=== PATIENT | female | born 1940 | race Caucasian/White ===

== ENCOUNTER 2021-11-26 11:50 | Outpatient (REF) | payer MEDICARE, BC, SELFPAY ==
[2021-11-26 14:09] LABS: Chloride* 102 mmol/L (96-114); Potassium* 4.5 mmol/L (3.6-5.1); Sodium* 132 mmol/L (135-149)
[2021-11-26 14:12] LABS: Blood Urea Nitrogen* 21 mg/dL (7-30); Calcium* 9.3 mg/dL (8.4-10.6); Creatinine* 0.6 mg/dL (0.5-1.5); Estimated Glomerular Filt Rate 89.56; Glucose* 255 mg/dL (60-115)
[2021-11-26 15:07] LABS: Hemoglobin A1C* 8.72 % (0-5.6)
[2021-11-26 15:30] LABS: Carbon Dioxide* 10 mmol/L (20-32)
== END 2021-11-26 11:51 | disposition home or self-care (01) ==
LOC: NPINS 11:50
PROVIDERS: PCP Family Medicine; Visit Provider Family Medicine
DX: E11.9 Type 2 diabetes mellitus without complications (principal); I10 Essential (primary) hypertension
CPT/HCPCS: 80048; 83036

== ENCOUNTER 2022-05-08 15:42 | Outpatient (REF) | payer MEDICARE, BC, SELFPAY ==
[2022-05-08 16:54] LABS: PCR FLU A Negative PCR FLU A (Negative); PCR FLU B Negative PCR FLU B (Negative)
[2022-05-08 16:58] LABS: SARS PCR* Negative SARS-CoV-2 (Negative)
== END 2022-05-08 15:43 | disposition home or self-care (01) ==
LOC: LAB 15:42
PROVIDERS: PCP Family Medicine; Visit Provider Family Medicine
DX: Z20.822 Contact with and (suspected) exposure to COVID-19 (principal); R50.9 Fever, unspecified; R11.10 Vomiting, unspecified
CPT/HCPCS: 87631

== ENCOUNTER 2022-07-01 12:35 | Outpatient (REF) | payer MEDICARE, BC, SELFPAY ==
[2022-07-01 14:07] LABS: Chloride* 101 mmol/L (96-114); Potassium* 4.3 mmol/L (3.6-5.1); Sodium* 136 mmol/L (135-149)
[2022-07-01 14:09] LABS: Creatinine* 0.5 mg/dL (0.5-1.5); Estimated Glomerular Filt Rate 94 ml/min
[2022-07-01 14:10] LABS: Blood Urea Nitrogen* 11 mg/dL (7-30); Calcium* 8.4 mg/dL (8.4-10.6); Carbon Dioxide* 21 mmol/L (20-32); Glucose* 277 mg/dL (60-115)
[2022-07-01 14:22] LABS: NT Pro B Type NatriureticPept* 2800 pg/mL
== END 2022-07-01 12:36 | disposition home or self-care (01) ==
LOC: NPINS 12:35
PROVIDERS: PCP Family Medicine; Visit Provider Family Medicine
DX: I50.9 Heart failure, unspecified (principal)
CPT/HCPCS: 80048; 83880